=== PATIENT | male | born 1995 | race Caucasian/White ===

== ENCOUNTER 2017-05-08 17:15 | Emergency (ER) | payer SELFPAY ==
[~2017-05-08] VITALS: Ht 172.7 cm; Wt 65.0 kg
[2017-05-08 17:18] VITALS: BP 133/100
[2017-05-08] MEDS ORDERED: LORAZEPAM 2MG/ML CPJ IV STA (18:10)
[2017-05-08] MEDS ORDERED: SODIUM CHLORIDE 0.9% 1,000 ML IV ONE (18:10)
== END 2017-05-08 18:39 | disposition home or self-care (01) ==
LOC: ER 17:24
DX: F41.9 Anxiety disorder, unspecified (principal); I10 Essential (primary) hypertension; F19.10 Other psychoactive substance abuse, uncomplicated; F10.20 Alcohol dependence, uncomplicated; Z59.0 Homelessness
CPT/HCPCS: 71045; 99283; J7030